=== PATIENT | female | born 1965 | race Caucasian/White ===

== ENCOUNTER 2017-07-05 14:32 | Emergency (ER) | payer MEDICAID ==
[~2017-07-05] VITALS: Ht 154.9 cm; Wt 90.7 kg
[2017-07-05] MEDS ORDERED: KETOROLAC TROMETHAMINE 15 MG INJ IV ONE (15:15)
[2017-07-05] MEDS ORDERED: ONDANSETRON 4 MG/2 ML VIAL IV ONE ×2 (15:15→17:45)
[2017-07-05] MEDS ORDERED: IV NORMAL SALINE 1000 ML BAG IV ONE (15:15)
[2017-07-05] MEDS ORDERED: KETOROLAC TROMETHAMINE 30 MG INJ ONE (15:22)
[2017-07-05] MEDS ORDERED: LAMO200T2 PO (15:22)
[2017-07-05] MEDS ORDERED: ONDANSETRON 4 MG/2 ML VIAL ONE ×2 (15:22→17:48)
[2017-07-05] MEDS ORDERED: TRAZ-144 PO (15:22)
[2017-07-05] MEDS ORDERED: CYCL5TAB PO (15:22)
[2017-07-05] MEDS ORDERED: CARB200T PO (15:22)
[2017-07-05] MEDS ORDERED: FLUO40CA8 PO (15:22)
[2017-07-05] MEDS ORDERED: ATOR40TA PO (15:22)
[2017-07-05] MEDS ORDERED: ALBU8.5H8 IH (15:22)
[2017-07-05] MEDS ORDERED: ARIP5TAB10 PO (15:22)
[2017-07-05] MEDS ORDERED: TRAM50TA2 PO (15:22)
[2017-07-05] MEDS ORDERED: NAPR500T6 PO (15:22)
[2017-07-05] MEDS ORDERED: GABA300C PO (15:22)
[2017-07-05] MEDS ORDERED: ALBUTEROL SULFATE 2.5 MG/3 ML NEBU ONE (15:26)
[2017-07-05 15:30] LABS: BASOPHILS % (AUTO) 0.4 % (0.0-2.0); EOSINOPHILS # (AUTO) 0.1 K/uL (0.0-0.7); EOSINOPHILS % (AUTO) 0.9 % (0.0-7.0); HEMATOCRIT 42.4 % (31.2-41.9); HEMOGLOBIN 14.5 g/dL (10.9-14.3); LYMPHOCYTES # (AUTO) 1.6 K/uL (20.0-40.0); LYMPHOCYTES % (AUTO) 20.6 % (20.5-51.5); MEAN CORPUSCULAR HEMOGLOBIN 34.2 uug (24.7-32.8); MEAN CORPUSCULAR HGB CONC 34 g/dL (32.3-35.6); MEAN CORPUSCULAR VOLUME 99.7 fL (75.5-95.3); MONOCYTES # (AUTO) 0.5 K/uL (2.0-10.0); MONOCYTES % (AUTO) 6.6 % (0.0-11.0); NEUTROPHILS # (AUTO) 5.5 K/uL (1.8-8.9); NEUTROPHILS % (AUTO) 71.5 % (38.5-71.5); PLATELET COUNT (AUTO) 233 K/uL (179-408); RED BLOOD CELL COUNT(AUTO) 4.26 MIL/uL (3.63-4.92); WHITE BLOOD COUNT (AUTO) 7.7 K/uL (3.8-11.8)
[2017-07-05] MEDS ORDERED: ALBUTEROL SULFATE 2.5 MG/3 ML NEBU NEB ONE (15:30)
[2017-07-05 15:41] LABS: *BLOOD, URINE NEGATIVE (NEGATIVE); *KETONES,URINE 1+ (NEGATIVE); *PROTEIN,URINE 2+ (NEGATIVE); *UROBILINOGEN,URINE 0.2 E.U./dl (NORMAL); LEUKOCYTE ESTERASE ,URINE TRACE (NEGATIVE); NITRITE, URINE NEGATIVE (NEGATIVE); PH,URINE 5.5 (5.0-8.0); UGLUCOSE NEGATIVE (NEGATIVE)
[2017-07-05 15:44] LABS: BILIRUBIN,TOTAL 0.5 mg/dL (0.2-1.0); TOTAL PROTEIN, SERUM 7.1 g/dL (6.4-8.2)
[2017-07-05 15:54] LABS: BILIRUBIN,DIRECT 0.1 mg/dL (0.0-0.2)
[2017-07-05 16:01] LABS: *BILIRUBIN,URIN NEGATIVE (NEGATIVE); *CLARITY,URINE HAZY (CLEAR); *COLOR,URINE DARK YELLOW (YELLOW)
[2017-07-05 16:02] LABS: BACTERIA,URINE FEW /HPF (NONE SEEN); MUCUS,URINE MANY /LPF (0-FEW); SQUAMOUS EPITHELIAL CELL,UR MODERATE /HPF (NONE SEEN)
[2017-07-05] MEDS ORDERED: HYDROCODONE/APAP 5-325MG TABLET PO ONE (16:30)
[2017-07-05] MEDS ORDERED: HYDROCODONE/APAP 5-325MG TABLET ONE (17:01)
[2017-07-05] MEDS ORDERED: MORPHINE SULFATE 2 MG/1 ML DISP.SYRIN IV ONE (17:45)
[2017-07-05] MEDS ORDERED: MORPHINE SULFATE 4 MG/1 ML DISP.SYRIN ONE (17:48)
--- NOTE | 2017-07-05 18:22 | NUR ---
Patient discharged to home in stable conditon. Written and verbal after care instructions given. Patient verbalizes understanding of instructions.pt says feels better, deneis n/v or pain at this time. pt caling for ride over the phone
[2017-07-05 18:23] VITALS: BP 111/59
== END 2017-07-05 18:24 | disposition home or self-care (01) ==
LOC: ER 14:32
DX: N39.0 Urinary tract infection, site not specified (principal); J45.909 Unspecified asthma, uncomplicated; Z86.73 Personal history of transient ischemic attack (TIA), and cerebral infarction without residual deficits; Z88.8 Allergy status to other drugs, medicaments and biological substances; Z79.1 Long term (current) use of non-steroidal anti-inflammatories (NSAID); Z79.891 Long term (current) use of opiate analgesic; Z79.899 Other long term (current) drug therapy
CPT/HCPCS: 36415; 83690; 85025; 87086; A4663; J1885; J2270; J2405